=== PATIENT | female | born 1990 | race Caucasian/White ===

== ENCOUNTER → 2020-07-11 12:56 | Outpatient (CLI) | payer OTHER, SELFPAY ==
--- NOTE | 2020-07-11 | DI.MRI.S_ITS ---
PROCEDURE: MR LUMBAR SPINE WO CON INDICATIONS: Dorsalgia, unspecified TECHNIQUE: Noncontrast sagittal T1 spin echo and T2 fast echo, sagittal STIR, axial T1 and T2 fast spin echo through the lumbar spine. In cases with scoliosis, additional coronal T2 fast spin echo may be performed. COMPARISON: None. FINDINGS: Image quality: Excellent. Alignment and Curvature: There is normal bony alignment. Bone Marrow: Marrow is of normal overall signal. No acute vertebral body compression fractures. Spinal Cord: Conus medullaris terminates at the L1 level. Visualized cord demonstrates normal signal and size. Paraspinous Soft Tissues: No paravertebral masses. T12-L1: Normal appearance. L1-L2: Normal appearance. L2-L3: Normal appearance. L3-L4: Mild central canal narrowing. Partial effacement of both lateral recesses with bilaterally symmetric appearance. Mild bilateral foraminal narrowing. L4-L5: Posterior annular fissure. Mild central canal narrowing. Partial effacement of both lateral recesses with bilaterally symmetric appearance. Mild bilateral foraminal narrowing. L5-S1: Posterior annular fissure. Partial effacement of both lateral recesses with bilaterally symmetric appearance. Mild bilateral foraminal narrowing. IMPRESSION: No high-grade canal stenosis. Mild bilateral foraminal narrowing in the lower lumbar spine from L3-S1 as detailed by spinal level above. Dictated by: Conrad Garcia M.D. on 07/11/2020 at 14:28 Approved by: Conrad Garcia M.D. on 07/11/2020 at 14:35
== END ==
PROVIDERS: Referring Provider Student in an Organized Health Care Education/Training Program; Visit Provider Student in an Organized Health Care Education/Training Program
DX: M54.9 Dorsalgia, unspecified (principal)
CPT/HCPCS: 72148

== ENCOUNTER 2020-10-09 18:26 | Emergency (ER) | payer OTHER, SELFPAY ==
[2020-10-09 18:33] VITALS: BP 117/70; PULSE 74; RESP 18; TEMP 36.8; O2SAT 95; BMI 27.1
--- NOTE | 2020-10-09 20:20 | PC.NURSE ---
Pt states Thursday AM she woke feeling like her back was locked up, pain persists without relief despite taking NSAID and alternating heat/cold therapy. History of back injury 7 years prior. Pain is constant 6-7/10.
[2020-10-09 22:36] VITALS: BP 117/70; PULSE 63; RESP 18; O2SAT 98
--- NOTE | 2020-10-09 22:50 | ED_ITS ---
HPI - Back Pain/Injury General Chief Complaint: Back Pain/Injury Stated Complaint: Lower back pain Time Seen by Provider: 10/09/20 22:48 Source: patient Limitations: no limitations History of Present Illness HPI Narrative: The patient initially injured her back several years ago doing a lift. She woke 2 mornings ago with central low back pain, pain radiating to her left leg. She has no numbness or weakness in her legs. She richardson s no incontinence. PriorMRI shows mild bilateral foraminal narrowing at L3 through S1. she has been using ice and heat. She has used ibuprofen without significant relief. She has discomfort when moving about. She has no abdominal pain. She has no urinary complaints. She is not . Related Data Previous Rx's Medication Instructions Recorded methocarbamol 750 mg PO Q6H PRN #30 tab 10/09/20 Allergies Allergy/AdvReac Type Severity Reaction Status Date / Time shellfish derived Allergy Verified 10/09/20 18:37 Review of Systems Constitutional Comments: No recent illness. No recent injuries. Gastrointestinal Gastrointestinal: Denies abdominal pain Comments: No incontinence Genitourinary Genitourinary: Denies dysuria Genitourinary: Denies dysuria Comments: no hematuria. No bladder incontinence. Musculoskeletal Comments: Low back pain is noted HPI. Integumentary/Breasts Skin/Breast: Denies rash and Denies sores Neurologic Comments: No focal numbness or weakness. Patient History Medical History (Updated 10/09/20 @ 23:05 by Sanjay Barnes MD) Low back pain Social History Smoking Status: Never smoker Smoking Status: Never smoker alcohol intake frequency: a few times a month Substance Use Type: does not use Exam Initial Vital Signs Initial Vital Signs: Vital Signs Temperature 98.2 F 10/09/20 18:33 Pulse Rate 74 10/09/20 18:33 Respiratory Rate 18 10/09/20 18:33 Blood Pressure 117/70 10/09/20 18:33 Pulse Oximetry 95 10/09/20 18:33 Const General: cooperative and well developed Nutritional Appearance: well nourished GI Palpation: soft and No tender Back/Spine/Pelvis Other: Tenderness in the central, lower lumbar region without palpable defects. Bilateral muscle spasm. No SI tenderness. Neuro Other: Motor and sensory exam of both lower extremities is intact. Extrem Other: Full range of motion both lower extremities. Negative straight leg raise bilaterally. Course Vital Signs Vital signs: Vital Signs - 8 hr 10/09/20 18:33 10/09/20 22:36 Temperature 98.2 F Pulse Rate 74 63 Respiratory Rate 18 18 Blood Pressure 117/70 117/70 Pulse Oximetry 95 98 Discharge Plan Departure Patient Disposition: Home Clinical Impression: Acute lumbar myofascial strain Qualifiers: Encounter type: initial encounter Qualified Code(s): S39.012A - Strain of muscle, fascia and tendon of lower back, initial encounter Instructions: DI for Back Spasm Activity Restrictions/Additional Instructions: Motrin every 6 hours as needed for pain. Robaxin every 6 hours for spasm. You may take these medications at the same time. Tramadol every 6 hours as needed for added pain control. I would suggest reserve this for nighttime use/help with sleep. No work for the next 2 days. Walk and stretch frequently. Follow-up in [facility]. Return here as necessary. Prescriptions: New methocarbamol 750 mg tablet 750 mg PO Q6H PRN (Reason: spasms) Qty: 30 RF: 0 Stand Alone Forms: Work Release Note
[2020-10-09] MEDS: KETOROLAC 30 MG/ML VIAL IM (23:13)
[2020-10-09] MEDS: TRAMADOL 50 MG PREPACK 1 BOTTLE MISC (23:14)
== END 2020-10-09 23:24 | disposition home or self-care (01) ==
PROVIDERS: Emergency Provider Emergency Medicine
DX: S39.012A Strain of muscle, fascia and tendon of lower back, initial encounter (principal)
CPT/HCPCS: 96372; 99283; J1885